=== PATIENT | male | born 1980 | race Caucasian/White ===

== ENCOUNTER → 2025-01-14 09:07 | Outpatient (CLI) | payer OTHER, SELFPAY ==
[2025-01-14 10:06] LABS: Add Manual Diff / Slide Review NO; Hematocrit 41.4 % (41-53); Hemoglobin 13.8 g/dL (13.5-17.5); Lymphocytes Absolute Auto 1900 /uL (1100-4500); Mean Corpuscular HGB Conc 33.2 % (30-36); Mean Corpuscular Hemoglobin 28.6 PG (26-34); Mean Corpuscular Volume 86.2 fL (80-100); Platelet Count 359 X10^3/uL (150-400)
[2025-01-14 10:27] LABS: Alanine Aminotransferase 19 IU/L (<50); Albumin 4.8 g/dL (3.5-5.0); Albumin Globulin Ratio 1.7 (1.0-2.8); Alkaline Phosphatase 55 U/L (38-126); Blood Urea Nitrogen 17 mg/dL (9-20); Calcium 10.0 mg/dL (8.4-10.2); Carbon Dioxide 28 mmol/L (22-32); Chloride 104 mmol/L (98-107); Cholesterol 190 mg/dL (140-199); Estimated Glomerular Filt Rate > 60 mL/min (>60); Globulin 2.8 g/dL (1.7-4.1); Glucose 92 mg/dL (70-99); HDL Cholesterol 77 mg/dL (40-60); HEMOLYSIS < 15 (0-50); Potassium 4.5 mmol/L (3.4-5.1); Sodium 144 mmol/L (137-145); Total Protein 7.6 g/dL (6.3-8.2); Triglycerides 63 mg/dL (35-150)
[2025-01-14 10:45] LABS: Vitamin D 25 Hydroxy (D3) 29.2 ng/mL (30.0-100.0)
[2025-01-14 11:00] LABS: TSH w/ Reflex to FT4 0.48 uIU/mL (0.47-4.68)
[2025-01-14 11:02] LABS: Ferritin 50 ng/mL (18-464)
[2025-01-15 08:36] LABS: CRP, High Sensitivity 0.36 mg/L (0.00-3.00)
== END ==
PROVIDERS: PCP Family Medicine; Referring Provider Family Medicine; Visit Provider Family Medicine
DX: E78.00 Pure hypercholesterolemia, unspecified (principal); M54.50 Low back pain, unspecified; G89.29 Other chronic pain; R53.83 Other fatigue; E55.9 Vitamin D deficiency, unspecified; E03.9 Hypothyroidism, unspecified; R53.82 Chronic fatigue, unspecified
CPT/HCPCS: 36415; 80053; 80061; 82306; 82728; 84443; 85025; 86140